=== PATIENT | male | born 1980 | race African-American/Black ===

== ENCOUNTER 2016-07-20 03:17 | Emergency (ER) | payer OTHER, SELFPAY ==
[2016-07-20] MEDS ORDERED: Lidocaine 1% 20 ML MDV ONE (03:38)
[2016-07-20] MEDS ORDERED: Sulfameth/Trimethoprim DS 800-160mg TAB ONE (03:55)
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
== END 2016-07-20 03:59 | disposition home or self-care (01) ==
LOC: NAV ERS 03:17
DX: L05.01 Pilonidal cyst with abscess (principal)
CPT/HCPCS: 10080; 87070; 87205; J2001

== ENCOUNTER 2016-07-26 09:00 | Emergency (ER) | payer SELFPAY ==
[2016-07-26] MEDS ORDERED: EPINEPHrine 1 MG/ML VIAL ONE (09:07)
[2016-07-26] MEDS ORDERED: Famotidine/PF 20 mg/2ml Vial ONE (09:11)
[2016-07-26] MEDS ORDERED: Sodium Chloride 0.9% 1,000 ML ONE (09:13)
[2016-07-26 09:58] LABS: Troponin I Less than 0.010 ng/mL (< 0.028)
[2016-07-26 10:01] LABS: ALT (SGPT) 25 U/L (0-55); AST (SGOT) 24 U/L (5-34); Alkaline Phosphatase 79 U/L (40-150); Anion Gap 19 mmol/L (10-20); BUN (Urea Nitrogen) 14 mg/dL (8.9-20.6); Bilirubin, Total 0.6 mg/dL (0.2-1.2); Calc. Creatinine Clearance 0 mL/min (70-130); Calcium 8.6 mg/dL (7.8-10.44); Carbon Dioxide 17 mmol/L (22-29); Chloride 105 mmol/L (98-107); Estimated GFR-MDRD Greater than 90; Globulin 3.4 g/dL (2.4-3.5); Protein, Total 7.3 g/dL (6.0-8.3)
--- NOTE | 2016-07-26 10:05 | RAD ---
CHEST ONE VIEW PORTABLE: History: 35-year-old male with dyspnea, pruritus, edema. FINDINGS: Monitor leads overlie the chest. Heart size is normal. The lungs are clear. IMPRESSION: No acute intrathoracic disease. POS: [facility]
[2016-07-26] MEDS ORDERED: methylPREDNISolone Sod Succ/PF 125 MG/2 ML VIAL ONE (10:11)
[2016-07-26 10:25] LABS: Hematocrit 47.8 % (42.0-52.0); Mean Platelet Volume 6.1 fL (7.4-10.4); Neutrophil 69 % (42-75); Red Blood Cell (RBC) Count 5.11 mill/uL (4.70-6.10); White Blood Cell (WBC) Count 5.8 thou/uL (4.8-10.8)
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
--- NOTE | 2016-07-26 11:17 | PICIS ---
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 Please review the instructions and educational material provided for you. Return to the Emergency Center if you have worsening symptoms not controlled by medication, or if you have chest pain, shortness of breath, nausea and vomiting that cannot be controlled, or any other medical concerns. PRESCRIPTION clindamycin HCl: CAPSULE : 150 mg : ORAL : Quantity: 300 Unit: mg Route: ORAL Schedule: 4 times a day Dispense: 7 May substitute. Refills: No Refills . (: ALIM) NOTES: No Refills. (: ALIM) Epi E-Z Pen: AUTO-INJECTOR (EA) : 0.3 mg/0.3 mL (1:1,000) : INJECTION : Quantity: 1 Unit: units Route: INJECTION Schedule: As Needed Dispense: 2 Unit: units May substitute. Refills: No Refills . (: ALI) NOTES: No Refills. (: ALIM) predniSONE oral: TABLET : 20 mg : ORAL : Quantity: 60 Unit: mg Route: ORAL Schedule: once a day Dispense: 4 May substitute. Refills: No Refills . (10:03 ALI) NOTES: No Refills. (10: ALI) Pepcid AC: TABLET : 20 mg : ORAL : Quantity: 20 Unit: mg Route: ORAL Schedule: 2 times a day Dispense: 5 May substitute. Refills: No Refills . (10:05 ALI) NOTES: No Refills. (10:05 ALIM) Benadryl Allergy: TABLET : 25 mg : ORAL : Quantity: 50 Unit: mg Route: ORAL Schedule: every 6 hours PRN Dispense: 30 Unit: tab(s) May substitute. Refills: No Refills . (10:06 ALI) NOTES: prn pruritis or allergic reaction No Refills. (10:06 ALIM) IMAGING *SUPPLY CHARGE SHEET: Image captured from scanner. (10:38 JPAR) *EKG: Image captured from scanner. (10:52 JPAR) *DISCHARGE INSTRUCTIONS RECEIPT: Image captured from scanner. (10:53 JPAR) ADMIN DIGITAL SIGNATURE: ALIZE Mcclain Jason. (10:58 JPAR) MD Carballo Arthur. (11:03 ALIM) RESULTS RADIOLOGY: XR Chest 1 View Portable Observe DT: TueJul 26, 2016 09:21, CXRP CHEST ONE VIEW PORTABLE: History: &a-1R&a+25V*p+0X*[id number]*c202B*c15G*c2P*p-0X&a-25V&a+1R Name: Simone Watters : 1980 M35 MedRec: [id number] AcctNum: [id number] Prepared: TueJul 26, 2016 11:14 by Interface Page 10 of 12 pMD [facility] EMERGENCY RECORD 35-year-old male with dyspnea, pruritus, edema. FINDINGS: Monitor leads overlie the chest. Heart size is normal. The lungs are clear. IMPRESSION: No acute intrathoracic disease. POS: [facility] . (10:49 ALIM) LABORATORY: Comprehensive Metabolic Panel Collection DT: TueJul 26, 2016 09:36, Sodium 137 mmol/L, Range (136-145), Potassium 3.6 mmol/L, Range (3.5-5.1), Chloride 105 mmol/L, Range (98-107), *Carbon Dioxide 17 - L mmol/L, Range (22-29), Anion Gap 19 mmol/L, Range (10-20), BUN (Urea Nitrogen) 14 mg/dL, Range (8.9-20.6), Creatinine 1.09 mg/dL, Range (0.7-1.3), Estimated GFR-MDRD Greater than 90 , Reference Range for Estimated GFR: Greater than 90, mL/min/1.73 m2 NOTE: The MDRD equation has not been validated for use, with the elderly (over 70 years of age), women, patients with, serious comorbid condition or persons with extremes of body size, muscle, mass, or nutritional status. , *Glucose 151 - H mg/dL, Range (70-105), Calcium 8.6 mg/dL, Range (7.8-10.44), Bilirubin, Total 0.6 mg/dL, Range (0.2-1.2), Protein, Total 7.3 g/dL, Range (6.0-8.3), NOTE: Plasma values are generally 0.3 to 0.5 g/dL higher than serum values, due to the presence of fibrinogen. , Albumin 3.9 g/dL, Range (3.5-5.0), Globulin 3.4 g/dL, Range (2.4-3.5), *Alb/Glob Ratio 1.1 - L g/dL, Range (1.2-2.2), Alkaline Phosphatase 79 U/L, Range (40-150), AST (SGOT) 24 U/L, Range (5-34), ALT (SGPT) 25 U/L, Range (0-55). (10:04 ALIM) Cardiac Profile w/CKMB & TropI Collection DT: TueJul 26, 2016 09:36, CKMB 2.9 ng/mL, Range (0-6.6), Troponin I Less than 0.010 ng/mL, Range (< 0.028), Reference Range , 0.00 - 0.028 ng/mL Negative 0.029 - 0.29 ng/mL , Indeterminate Greater or Equal to 0.3 ng/mL Strongly suggests [place] , . (10:04 ALIM) &a-1R&a+25V*p+0X*[id number]*c202B*c15G*c2P*p-0X&a-25V&a+1R Name: Simone Watters : 1980 M35 MedRec: [id number] AcctNum: [id number] Prepared: TueJul 26, 2016 11:14 by Interface Page 11 of 12 pMD [facility] EMERGENCY RECORD CBC with Differential Collection DT: TueJul 26, 2016 09:36, White Blood Cell (WBC) Count 5.8 thou/uL, Range (4.8-10.8), Red Blood Cell (RBC) Count 5.11 mill/uL, Range (4.70-6.10), Hemoglobin 15.9 g/dL, Range (14.0-18.0), Hematocrit 47.8 %, Range (42.0-52.0), Mean Corpuscular Volume 93.5 fl, Range (80.0-94.0), *Mean Corpuscular Hemoglobin 31.1 - H pg, Range (27.0-31.0), Mean Corpuscular HGB CONC 33.3 g/dL, Range (32.0-36.0), RBC Distribution Width 13.2 %, Range (11.5-14.5), Platelet Count 352 thou/uL, Range (130-400), *Mean Platelet Volume 6.1 - L fL, Range (7.4-10.4), Neutrophil 69 %, Range (42-75), Lymphocytes 22 %, Range (21-51), Monocytes 8 %, Range (0-10), Eosinophils 1 %, Range (0-10). (10:28 ANDREA) Clayton: ANDREA=MD Haris, Gumaro MORELAND=ALIZE Mcclain, Dusty &a-1R&a+25V*p+0X*l1374W*c202B*c15G*c2P*p-0X&a-25V&a+1R Name: Simone Watters : 1980 M35 MedRec: [id number] AcctNum: [id number] Prepared: TueJul 26, 2016 11:14 by Interface Page 12 of 12 pMD [facility]
== END 2016-07-26 10:53 | disposition home or self-care (01) ==
LOC: NAV ERS 09:00
DX: R22.0 Localized swelling, mass and lump, head (principal); T37.0X5A Adverse effect of sulfonamides, initial encounter; L29.9 Pruritus, unspecified; Z87.891 Personal history of nicotine dependence
CPT/HCPCS: 71010; 80053; 82553; 84484; 85025; 93005; 96372; 96374; J0171; J2930; J7050; S0028

== ENCOUNTER 2016-11-22 20:20 | Emergency (ER) | payer SELFPAY | END 2016-11-22 21:15 | disposition home or self-care (01) | LOC: NAV ERS 20:20 | DX: L05.91 Pilonidal cyst without abscess (principal); J45.909 Unspecified asthma, uncomplicated | CPT/HCPCS: 99282 ==

== ENCOUNTER 2016-11-24 00:51 | Emergency (ER) | payer SELFPAY ==
[2016-11-24] MEDS ORDERED: Lidocaine 1% w/Epinephrine 1:100K 20 ML VIAL ONE (01:17)
[2016-11-24] MEDS ORDERED: Triple Antibiotic Oint 1 GM Packet ONE (01:28)
[2016-11-24] MEDS ORDERED: Bacitracin Zinc 1 Packet ONE (01:35)
== END 2016-11-24 01:50 | disposition home or self-care (01) ==
LOC: NAV ERS 00:51
DX: S01.01XA Laceration without foreign body of scalp, initial encounter (principal); J45.909 Unspecified asthma, uncomplicated; W22.8XXA Striking against or struck by other objects, initial encounter
CPT/HCPCS: 12002; J2001

== ENCOUNTER 2016-12-04 09:05 | Emergency (ER) | payer SELFPAY | END 2016-12-04 09:25 | disposition home or self-care (01) | LOC: NAV ERS 09:05 | DX: S01.01XD Laceration without foreign body of scalp, subsequent encounter (principal); J45.909 Unspecified asthma, uncomplicated; W22.09XD Striking against other stationary object, subsequent encounter ==

== ENCOUNTER 2016-12-06 19:33 | Emergency (ER) | payer SELFPAY ==
[2016-12-06] MEDS ORDERED: Ondansetron ODT 4 MG TAB ONE (19:54)
[2016-12-06] MEDS ORDERED: Ketorolac Tromethamine 60 MG/2 ML VIAL ONE (20:24)
[2016-12-06] MEDS ORDERED: Acetaminophen/Codeine 30-300mg Tablet ONE (20:24)
[2016-12-06] MEDS ORDERED: AMOXicillin 250 MG CAP ONE (20:25)
--- NOTE | 2016-12-06 22:09 | CT ---
BRAIN CT WITHOUT IV CONTRAST: History: 36-year-old male with left sided headache. Comparison: 05-23-11 FINDINGS: No focal mass or midline shift. No intra or extraaxial hemorrhage. Bilateral sinus mucosal disease. The mastoids are clear. IMPRESSION: No acute intracranial process. Sinus mucosal disease. No mass or bleed. POS: [facility]
== END 2016-12-06 20:57 | disposition home or self-care (01) ==
LOC: NAV ERS 19:33
DX: R51 Headache (principal); K08.89 Other specified disorders of teeth and supporting structures
CPT/HCPCS: 70450; 96372; J1885; J2270; Q0162

== ENCOUNTER 2016-12-14 07:05 | Emergency (ER) | payer SELFPAY ==
[2016-12-14] MEDS ORDERED: Ibuprofen 200 MG TAB ONE (07:13)
[2016-12-14] MEDS ORDERED: Penicillin V Potassium 250 MG TAB ONE (07:24)
== END 2016-12-14 07:29 | disposition home or self-care (01) ==
LOC: NAV ERS 07:05
DX: J02.0 Streptococcal pharyngitis (principal); J45.909 Unspecified asthma, uncomplicated; F17.210 Nicotine dependence, cigarettes, uncomplicated
CPT/HCPCS: 99283

== ENCOUNTER 2017-02-20 08:44 | Emergency (ER) | payer SELFPAY ==
[2017-02-20] MEDS ORDERED: Sodium Chloride 0.9% 1,000 ML ONE (09:08)
[2017-02-20] MEDS ORDERED: Ketorolac Tromethamine 30 MG/ML VIAL ONE (09:09)
[2017-02-20] MEDS ORDERED: Ondansetron HCl/PF 4 MG/2 ML Vial ONE (09:09)
[2017-02-20 09:26] LABS: #Basophils 0.1 thou/uL (0.0-0.2); #Eosinphils 0.1 thou/uL (0.0-0.7); #Lymphocytes 3.1 thou/uL (1.20-3.40); #Monocytes 0.5 thou/uL (0.11-0.59); #Neutrophils 2.7 thou/uL (1.40-6.50); %Basophils 1.6 % (0.0-1.0); %Eosinophils 1.4 % (0.0-10.0); %Lymphocytes 47.9 % (21.0-51.0); %Monocytes 8.3 % (0.0-10.0); %Neutrophils 40.9 % (42.0-75.0); Hemoglobin 14.8 g/dL (14.0-18.0); Mean Corpuscular HGB CONC 34.8 g/dL (32.0-36.0); Mean Corpuscular Hemoglobin 30.2 pg (27.0-31.0); Mean Corpuscular Volume 86.8 fl (80.0-94.0); Mean Platelet Volume 6.5 fL (7.4-10.4); Platelet Count 237 thou/uL (130-400); RBC Distribution Width 12.3 % (11.5-14.5); Red Blood Cell (RBC) Count 4.91 mill/uL (4.70-6.10); White Blood Cell (WBC) Count 6.5 thou/uL (4.8-10.8)
[2017-02-20 09:32] LABS: ALT (SGPT) 18 U/L (8-55); AST (SGOT) 18 U/L (5-34); Albumin 4.1 g/dL (3.5-5.0); Alkaline Phosphatase 82 U/L (40-150); Anion Gap 20 mmol/L (10-20); BUN (Urea Nitrogen) 7 mg/dL (8.9-20.6); Bilirubin, Total 0.8 mg/dL (0.2-1.2); Calc. Creatinine Clearance 0 mL/min (70-130); Calcium 9.3 mg/dL (7.8-10.44); Carbon Dioxide 13 mmol/L (22-29); Chloride 106 mmol/L (98-107); Estimated GFR-MDRD Greater than 90; Globulin 3.9 g/dL (2.4-3.5); Glucose 99 mg/dL (70-105); Potassium 3.6 mmol/L (3.5-5.1); Sodium 135 mmol/L (136-145)
[2017-02-20] MEDS ORDERED: Acetaminophen 500 MG TAB ONE (10:20)
[2017-02-20 10:21] LABS: Bilirubin Negative (Negative); Blood, Urine Negative (Negative); Clarity Clear (Clear); Glucose, Urine (Dipstick) Negative (Negative); Leukocyte Negative (Negative); Nitrite Negative (Negative); Protein, Urine (Dipstick) Trace mg/dL (Neg-Trace); pH, Urine 8.5 (5.0-9.0)
--- NOTE | 2017-02-20 11:22 | CT ---
CT ABDOMEN AND PELVIS NONCONTRAST: Date: 02/20/17 HISTORY: Flank pain, hematuria. COMPARISON: 04/21/15. FINDINGS: Each renal collecting system and ureter are decompressed without stone apparent. Urinary bladder is incompletely distended. Lack of contrast limits evaluation for other abnormalities. IMPRESSION: No CT evidence of urinary tract obstruction or calcification. POS: [facility]
== END 2017-02-20 10:52 ==
LOC: NAV ERS 08:44
DX: R10.30 Lower abdominal pain, unspecified (principal); J45.909 Unspecified asthma, uncomplicated; F17.210 Nicotine dependence, cigarettes, uncomplicated
CPT/HCPCS: 74176; 80053; 81003; 82274; 85025; 96361; 96374; 96375; J1170; J1885; J2405; J7050

== ENCOUNTER 2017-09-09 12:43 | Emergency (ER) | payer OTHER, SELFPAY ==
[2017-09-09] MEDS ORDERED: Ibuprofen 800 MG TAB ONE (13:13)
== END 2017-09-09 13:15 | disposition home or self-care (01) ==
LOC: NAV ERS 12:43
DX: J11.1 Influenza due to unidentified influenza virus with other respiratory manifestations (principal); R03.0 Elevated blood-pressure reading, without diagnosis of hypertension; F17.210 Nicotine dependence, cigarettes, uncomplicated
CPT/HCPCS: 99283

== ENCOUNTER 2017-10-22 14:09 | Emergency (ER) | payer OTHER, SELFPAY ==
[2017-10-22] MEDS ORDERED: Acetaminophen 500 MG TAB ONE (15:17)
[2017-10-22] MEDS ORDERED: Ketorolac Tromethamine 60 MG/2 ML VIAL ONE (15:18)
== END 2017-10-22 16:24 | disposition home or self-care (01) ==
LOC: NAV ERS 14:09
DX: M54.16 Radiculopathy, lumbar region (principal); F17.210 Nicotine dependence, cigarettes, uncomplicated
CPT/HCPCS: 96372; J1885

== ENCOUNTER 2020-12-05 02:37 | Emergency (ER) | payer BC ==
[2020-12-05] MEDS ORDERED: Lidocaine 1% (PF) 30 ML VIAL ONE (02:46)
== END 2020-12-05 03:20 | disposition home or self-care (01) ==
LOC: NAV ERS 02:37
DX: S51.812A Laceration without foreign body of left forearm, initial encounter (principal); Z87.891 Personal history of nicotine dependence; W26.8XXA Contact with other sharp object(s), not elsewhere classified, initial encounter
CPT/HCPCS: 12004; J2001

== ENCOUNTER 2021-02-03 12:48 | Emergency (ER) | payer BC ==
[2021-02-03] MEDS ORDERED: Bacitracin 1 PK ONE (13:31)
[2021-02-03 23:53] LABS: SARS-CoV-2 PCR by NAA Not Detected (NotDetected)
== END 2021-02-03 13:39 | disposition home or self-care (01) ==
LOC: NAV ERS 12:48
DX: Z20.822 Contact with and (suspected) exposure to COVID-19 (principal); S51.812D Laceration without foreign body of left forearm, subsequent encounter; Z87.891 Personal history of nicotine dependence
CPT/HCPCS: 99283; U0003; U0005

== ENCOUNTER 2021-06-30 07:57 | Emergency (ER) | payer OTHER, BC ==
[2021-06-30] MEDS ORDERED: Tetracaine 0.5% PF 4 ML BOT ONE (08:25)
== END 2021-06-30 09:45 | disposition home or self-care (01) ==
LOC: NAV ERS 07:57
DX: H57.13 Ocular pain, bilateral (principal); Z87.891 Personal history of nicotine dependence
CPT/HCPCS: 99283

== ENCOUNTER 2021-07-02 10:42 | Emergency (ER) | payer BC ==
[2021-07-03 11:22] LABS: SARS-CoV-2 PCR by NAA Not Detected (NotDetected)
== END 2021-07-02 12:00 | disposition home or self-care (01) ==
LOC: NAV ERS 10:42
DX: Z20.822 Contact with and (suspected) exposure to COVID-19 (principal); Z11.52 Encounter for screening for COVID-19
CPT/HCPCS: 99283; U0003; U0005

== ENCOUNTER 2021-07-15 07:59 | Emergency (ER) | payer BC, SELFPAY ==
[2021-07-15] MEDS ORDERED: Ondansetron ODT 4 MG TAB ONE (08:28)
[2021-07-15 21:03] LABS: SARS-CoV-2 PCR by NAA Not Detected (NotDetected)
== END 2021-07-15 09:18 | disposition home or self-care (01) ==
LOC: NAV ERS 07:59
DX: J06.9 Acute upper respiratory infection, unspecified (principal); B34.9 Viral infection, unspecified; R11.2 Nausea with vomiting, unspecified; R19.7 Diarrhea, unspecified; Z20.822 Contact with and (suspected) exposure to COVID-19; Z87.891 Personal history of nicotine dependence
CPT/HCPCS: 87804; 99283; Q0162; U0003; U0005

== ENCOUNTER 2021-08-05 12:12 | Emergency (ER) | payer BC ==
[2021-08-06 12:28] LABS: SARS-CoV-2 PCR by NAA Not Detected (NotDetected)
== END 2021-08-05 13:06 | disposition home or self-care (01) ==
LOC: NAV ERS 12:12
DX: B34.9 Viral infection, unspecified (principal); Z20.822 Contact with and (suspected) exposure to COVID-19; Z87.891 Personal history of nicotine dependence
CPT/HCPCS: 87804; 99284; U0003; U0005

== ENCOUNTER 2022-07-21 05:57 | Emergency (ER) | payer BC | END 2022-07-21 06:50 | disposition home or self-care (01) | LOC: NAV ERS 05:57 | DX: U07.1 COVID-19 (principal); I10 Essential (primary) hypertension; Z87.891 Personal history of nicotine dependence | CPT/HCPCS: 87804; 99283; U0003; U0005 ==

== ENCOUNTER 2025-03-11 14:11 | Emergency (ER) | payer BC ==
[~2025-03-11 14:11] MED LIST: Iopamidol 370 76% 100 ML VIAL ONE
[2025-03-11] MEDS ORDERED: Ondansetron PF 4 MG/2 ML Vial ONE (14:37)
[2025-03-11] MEDS ORDERED: Ketorolac Tromethamine 30 MG (1 mL) VIAL ONE (14:37)
[2025-03-11 15:01] LABS: #Basophils 0.1 thou/uL (0.0-0.2); #Eosinophils 0.1 thou/uL (0.0-0.7); #Lymphocytes 1.7 thou/uL (1.20-3.40); #Monocytes 0.2 thou/uL (0.11-0.59); #Neutrophils 4.2 thou/uL (1.40-6.50); %Basophils 1.3 % (0.0-1.0); %Eosinophils 0.8 % (0.0-10.0); %Lymphocytes 27.3 % (21.0-51.0); %Monocytes 3.7 % (0.0-10.0); %Neutrophils 66.9 % (42.0-75.0); Hematocrit 46.5 % (42.0-52.0); Hemoglobin 16.0 g/dL (14.0-18.0); Mean Corpuscular Hemoglobin 29.9 pg (27.0-31.0); Mean Corpuscular Volume 87.0 fl (78.0-98.0); Platelet Count 309 10x3/uL (130-400); Red Blood Cell (RBC) Count 5.35 mill/uL (4.70-6.10); White Blood Cell (WBC) Count 6.2 10x3/uL (4.8-10.8)
[2025-03-11 15:10] LABS: Glucose, Urine (Dipstick) Negative (Negative); Leukocyte Negative (Negative); Protein, Urine (Dipstick) 30 mg/dL (Neg-Trace); Specific Gravity, Urine 1.025 (1.005-1.030)
[2025-03-11 15:12] LABS: Bacteria/HPF 1+ HPF (None Seen); CAUTI Indications for Culture Pelvic or flank pain; Mucous/LPF 2+ LPF (<2+); RBC/HPF 0-3 HPF (0-3)
[2025-03-11 15:14] LABS: Urine Culture Reflex No No
[2025-03-11 15:22] LABS: ALT (SGPT) 14 U/L (Less than 45); AST (SGOT) 37 U/L (11-34); Albumin 4.3 g/dL (3.1-4.5); Alkaline Phosphatase 76 U/L (40-110); Anion Gap 20 mmol/L (10-20); BUN (Urea Nitrogen) 9 mg/dL (8.9-20.6); Bilirubin, Total 0.8 mg/dL (0.3-1.2); Calc. Creatinine Clearance 0 mL/min (70-130); Calcium 9.2 mg/dL (7.8-10.44); Carbon Dioxide 19 mmol/L (22-29); Chloride 105 mmol/L (98-107); Globulin 3.9 g/dL (2.4-3.5); Glucose 117 mg/dL (70-105); Lipase 37 U/L (8-78); Potassium 3.8 mmol/L (3.5-5.1); Sodium 140 mmol/L (136-145)
== END 2025-03-11 16:05 | disposition home or self-care (01) ==
LOC: NAV ERS 14:11
DX: S39.011A Strain of muscle, fascia and tendon of abdomen, initial encounter (principal); I10 Essential (primary) hypertension; Z87.891 Personal history of nicotine dependence; W18.49XA Other slipping, tripping and stumbling without falling, initial encounter
CPT/HCPCS: 74177; 80053; 81001; 83690; 85025; 96361; 96374; 96375; J1885; J2405; J7030; Q9967